=== PATIENT | female | born 1980 | race Caucasian/White ===

== ENCOUNTER 2019-06-04 08:01 | Emergency (ER) | payer SELFPAY ==
[~2019-06-04] VITALS: Ht 162.6 cm; Wt 79.2 kg
--- NOTE | 2019-06-04 08:30 | PHYS DOC ---
Past History Past Medical History: Asthma Past Surgical History: Cholecystectomy, Tubal ligation, Other Additional Past Surgical Histo: liver stent placed and removed; left eye Smoking: Cigarettes Alcohol Use: None Drug Use: None Adult General Chief Complaint Chief Complaint: NAUSEA/VOMITING/[facility] HPI Patient is a 38-year-old female presents with nausea, vomiting, and diarrhea for the past 2 days. She had a fever of 101 yesterday. Her daughter had similar symptoms last week. No blood in the stool or emesis. She reports being on her menses currently. No dysuria or hematuria otherwise. Some cramping upper abdominal pain. No significant relief with ibuprofen. Patient also notes that her asthma is flaring up. She has been using her inhaler more than usual. Mild cough that is nonproductive. She does get improvement with her inhaler.[] Review of Systems Review of Systems Constitutional: Denies fever or chills [] Eyes: Denies change in visual acuity, redness, or eye pain [] HENT: Denies nasal congestion or sore throat [] Respiratory: See history of present illness[] Cardiovascular: No additional information not addressed in HPI [] GI: See history of present illness[] : Denies dysuria or hematuria [] Musculoskeletal: Denies back pain or joint pain [] Integument: Denies rash or skin lesions [] Neurologic: Denies headache, focal weakness or sensory changes [] Endocrine: Denies polyuria or polydipsia [] All other systems were reviewed and found to be within normal limits, except as documented in this note. Allergies Allergies Allergies Uncoded Allergies Type Severity Reaction Last Updated Verified IV contrast dye Allergy Unknown 06/04/19 Physical Exam Physical Exam Constitutional: Well developed, well nourished, no acute distress, non-toxic appearance. [] HENT: Normocephalic, atraumatic, bilateral external ears normal, oropharynx moist, no oral exudates, nose normal. [] Eyes: PERRLA, EOMI, conjunctiva normal, no discharge. [] Neck: Normal range of motion, no tenderness, supple, no stridor. [] Cardiovascular:Heart rate regular rhythm, no murmur [] Lungs & Thorax: Bilateral breath sounds clear to auscultation [] Abdomen: Bowel sounds normal, soft, mild epigastric tenderness, no rebound, no guarding, no rigidity, she is able to sit up and lie back without any difficulty, no masses, no pulsatile masses. [] Skin: Warm, dry, no erythema, no rash. [] Back: No tenderness, no CVA tenderness. [] Extremities: No tenderness, no cyanosis, no clubbing, ROM intact, no edema. [] Neurologic: Alert and oriented X 3, normal motor function, normal sensory function, no focal deficits noted. [] Psychologic: Affect normal, judgement normal, mood normal. [] Current Patient Data Vital Signs Vital Signs Date Time Temp Pulse Resp B/P (MAP) Pulse Ox O2 Delivery O2 Flow Rate FiO2 06/04/19 08:13 98.1 79 18 95 Room Air EKG EKG [] Radiology/Procedures Radiology/Procedures [] Course & Med Decision Making Course & Med Decision Making Pertinent Labs and Imaging studies reviewed. (See chart for details) ED course: Patient arrived, was placed in bed, and tolerated exam well. Findings and plan were discussed with the patient. She was given antiemetics. She had no further episodes of nausea or vomiting while in the emergency department. She was discharged in improved condition with all questions answered. Medical decision making: There is no evidence of this being a flu syndrome. No evidence of pneumonia. Will put her on a short course of oral steroids to help with the wheezing. Believe this to be a viral syndrome triggering the nausea and vomiting along with her breathing issues. There is no evidence of hypoxia. No evidence of oral intake intolerance. No evidence of urinary tract infection or .[] Dragon Disclaimer Dragon Disclaimer This electronic medical record was generated, in whole or in part, using a voice recognition dictation system. Departure Departure: Impression: Primary Impression: Nausea, vomiting, and diarrhea Additional Impression: Asthma exacerbation Disposition: HOME, SELF-CARE Condition: IMPROVED Referrals: FRANCHESKA RAMOS (PCP) Follow-up in 2 days Patient Instructions: Asthma Attacks, Prevention, Asthma, Adult, Diet for Diarrhea, Adult, Nausea and Vomiting Additional Instructions: Stop smoking!Drink plenty of fluids, frequent small sips. No fatty foods, no milk, and no pepper for the next 48 hours. For the next 48 hours eat a diet rich in carbohydrates with foods such as bananas, rice, applesauce, and toast. Follow-up with your regular doctor in 2 days. Return to the ER if unable to tolerate liquids, worsening difficulty breathing, blood in the stool or emesis, or any other concerns. Scripts Metoclopramide Hcl (REGLAN) 10 Mg Tablet 10 MG PO QID for nausea and vomiting, #30 TAB Prov: JASBIR EUCEDA DO 06/04/19 Prednisone (PREDNISONE) 50 Mg Tablet 1 TAB PO DAILY for INFLAMMATION, #5 TAB Prov: JASBIR EUCEDA DO 06/04/19 Problem Qualifiers Additional Impression: Asthma exacerbation Asthma severity: mild Asthma persistence: intermittent Qualified Codes: J45.21 - Mild intermittent asthma with (acute) exacerbation JASBIR EUCEDA DO Jun 04, 2019 08:30
[2019-06-04] MEDS: HYOSCYAMINE 0.125 MG TAB.RAPDIS PO ONE (08:46)
[2019-06-04] MEDS: ONDANSETRON ODT 4 MG TAB.RAPDIS PO ONE (08:46)
[2019-06-04 08:53] LABS: BILIRUBIN,URINE NEG (NEG); CLARITY,URINE CLEAR; COLOR,URINE YELLOW; GLUCOSE,URINE NEG (NEG); NITRITE,URINE NEG (NEG); UROBILINOGEN,URINE 0.2 mg/dL (0.2 mg/dL)
[2019-06-04 09:16] LABS: INFLUENZA A PATIENT NEGATIVE (NEGATIVE); INFLUENZA B PATIENT NEGATIVE (NEGATIVE)
[2019-06-04] MEDS ORDERED: METO10TA81 PO (09:24)
[2019-06-04] MEDS ORDERED: PRED50TA PO (09:24)
[2019-06-04 09:41] VITALS: BP 131/81
== END 2019-06-04 09:42 | disposition home or self-care (01) ==
LOC: ER 08:01
DX: R11.2 Nausea with vomiting, unspecified (principal); R19.7 Diarrhea, unspecified; J45.21 Mild intermittent asthma with (acute) exacerbation; F17.210 Nicotine dependence, cigarettes, uncomplicated; Z90.49 Acquired absence of other specified parts of digestive tract; Z98.51 Tubal ligation status; Z91.041 Radiographic dye allergy status
CPT/HCPCS: 81003; 81025; 87804; 99284; Q0162

== ENCOUNTER 2020-03-21 09:36 | Emergency (ER) | payer BC ==
[~2020-03-21] VITALS: Ht 162.6 cm; Wt 84.0 kg
[~2020-03-21 09:36] MED LIST: METO10TA81 PO; PRED50TA PO
--- NOTE | 2020-03-21 09:53 | PHYS DOC ---
Past History Past Medical History: Asthma Past Surgical History: Cholecystectomy, Tubal ligation, Other Additional Past Surgical Histo: liver stent placed and removed; left eye Smoking: Cigarettes Alcohol Use: None Drug Use: None General Adult HPI: HPI: 29-year-old female past medical history significant for asthma, presents to the ED with c/o ruq alexander, nonradiating abdominal pain with 1 episode of nbnb vomiting this am, stating "I've had this pain for 9 years but it never usually lasts this long." Reports pain has been constant for 45 minutes and is requesting pain medication. 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 Reports recent upper endoscopy on March 04 at [facility] with Dr. Lay. Past surgical history with cholecystectomy and tubal ligation with a liver stent placed (because of retained gall stone). Pt reports she never drinks alcohol, has no known hyperlipidemia. PCP-Dr. Blevins. States she's not on chronic pain medications-last time she was was when she had a retained gall stone. Has not eaten anything today.Patient's endoscopy report showed normal common bile duct, no stones or filling defects within the bile duct with no dilatation, normal visualized portions of the liver with no lymphadenopathy, pancreatic ductal anatomy was consistent with pancreas division with no calcifications seen throughout the pancreas, no evidence of chronic pancreatitis, pancreatic duct was normal in caliber throughout pancreas. Report was recommending an MRI MRCP with secretin to evaluate pancreatic ductal anatomy-this was to be performed yesterday at [facility] but pt missed it because she was "working a double." Patient has follow-up with Dr. Lay on April 18. Review of Systems: Review of Systems: Constitutional: Denies fever or chills Eyes: Denies change in visual acuity HENT: Denies nasal congestion or sore throat Respiratory: Denies cough or shortness of breath or hemoptysis Cardiovascular: Denies chest pain or edema GI: Denies hematochezia, hematemesis, melena or diarrhea : Denies dysuria or hematuria Musculoskeletal: Denies back pain or joint pain Integument: Denies rash Neurologic: Denies headache, focal weakness or sensory changes Endocrine: Denies polyuria or polydipsia Lymphatic: Denies swollen glands Psychiatric: Denies depression or anxiety Heart Score: Risk Factors: Risk Factors: DM, Current or recent (<one month) smoker, HTN, HLP, family history of CAD, obesity. Risk Scores: Score 0 - 3: 2.5% MACE over next 6 weeks - Discharge Home Score 4 - 6: 20.3% MACE over next 6 weeks - Admit for Clinical Observation Score 7 - 10: 72.7% MACE over next 6 weeks - Early Invasive Strategies Allergies: Allergies: Allergies Uncoded Allergies Type Severity Reaction Last Updated Verified IV contrast dye Allergy Unknown 06/04/19 Physical Exam: PE: Constitutional: Well developed, well nourished, no acute distress-calm/resting, non-toxic appearance. [] HENT: Normocephalic, atraumatic, bilateral external ears normal, Eyes: EOMI, conjunctiva normal, no discharge. [] Neck: Normal range of motion, no tenderness, supple, no stridor. [] Cardiovascular:Heart rate regular rhythm, no murmur [] Lungs & Thorax: Bilateral breath sounds clear to auscultation [] Abdomen: Bowel sounds normal, soft, no reproducible ruq tenderness, no masses, no pulsatile masses. [] Skin: Warm, dry, no erythema, no rash. [] Back: No tenderness, Extremities: No tenderness, no cyanosis, no clubbing, ROM intact, no edema. [] Neurologic: Alert and oriented X 3, normal motor function, normal sensory function, no focal deficits noted. [] Psychologic: Affect normal, judgement normal, mood normal. [] EKG: EKG: [] Radiology/Procedures: Radiology/Procedures: IMAGING REPORT Signed PATIENT: PRIYA DAVENPORT ACCOUNT: [id number] : 11/16/1990 LOCATION: ER AGE: 29 SEX: F EXAM STATUS: REG ER ORD. PHYSICIAN: BEN TEE DO REASON: ruq pain PROCEDURE: ACUTE ABDOMEN SERIES ACUTE ABDOMEN SERIES History: Reason: ruq pain / Spl. Instructions: / History: Technique: Upright and supine views of the abdomen. Comparison: None. Findings: No consult DISH or pleural effusion. No pneumothorax. Normal heart size. No pneumoperitoneum. Nondilated air-filled small bowel within the left mid abdomen. Air and stool scattered throughout the imaged colon. No air-fluid level. Surgical clips right upper quadrant. Impression: 1. Nonobstructed bowel gas pattern. Electronically signed by: Jesus Britton DO (03/21/2020 10:49 AM) [id number] DICTATED AND SIGNED BY: JESUS BRITTON DO DATE: 03/21/20 1049 CC: [facility]LEVINS; [facility] ~ Course & Med Decision Making: Course & Med Decision Making Pertinent Labs and Imaging studies reviewed. (See chart for details) Concern for chronic RUQ abdominal pain (x9 years), likely secondary to pancreatic divisum. Pt will need to reschedule her MRI MRCP. U/a with yeast - will prescribe diflucan. Also prescribe Zofran ODT and Motrin as needed for pain. Will refer to GI for further work-up and evaluation. We will also refer back to her primary care physician for pain management along with pain management referral. Strict ED return precautions were given for severe abdominal pain, fever or dehydration. Life-threatening processes were considered but are low suspicion at this time, given history and physical exam. Pt was educated on all prescription medications and adverse effects. All patient's questions were answered and pt was stable at time of discharge. Life/limb-threatening differential includes but is not limited to, aortic dissection, aortic aneurysm, acute coronary syndrome, surgical abdomen (appendicitis, cholecystitis, ischemic bowel, strangulated hernia, etc), bowel obstruction or volvulus, bladder outlet obstruction, gastrointestinal bleeding, inflammatory bowel disease, peptic ulcer disease, sepsis, diverticular disease, ureterolithiasis, nephrolithiasis, ovarian or testicular torsion, ectopic , vaginal hemorrhage, or genitourinary infection. I spoken with the patient and her caregivers. I explained the patient's condition, diagnoses and treatment plan based on the information available to me at this time. I have answered the patient and her caregiver's questions and addressed any concerns. The patient and her caregivers have a good understanding of patient's diagnosis, condition and treatment plan as can be expected at this point. Vital signs have been stable. Patient's condition is stable and appropriate for discharge from the emergency department. Patient will pursue further outpatient evaluation with primary care physician or other designated or consulting physician as outlined in the discharge instr uctions. The patient and/or caregivers are agreeable to this plan of care and follow-up instructions have been explained in detail. The patient and/or caregivers have received these instructions in written form and have expressed an understanding of the discharge instructions. The patient and/or caregivers are aware that any significant change of condition or worsening of symptoms should prompt immediate return to this or the closest emergency department or call to 911. Connor Disclaimer: Connor Disclaimer: This electronic medical record was generated, in whole or in part, using a voice recognition dictation system. Departure Departure: Impression: Primary Impression: Abdominal pain Additional Impressions: Pancreas divisum Nausea Yeast detected Disposition: HOME/RESIDENCE PRIOR TO ADM Condition: STABLE Referrals: DC BLEVINS (PCP) Patient Instructions: Abdominal Pain, Nausea, Adult Additional Instructions: FOLLOW UP WITH GASTROENTEROLOGY: [facility] [address], [address], [place] [address] FOLLOW UP WITH PAIN MANAGEMENT: [facility] Address: [address] [place] [id number] EMERGENCY DEPARTMENT GENERAL DISCHARGE INSTRUCTIONS Thank you for coming to [facility] (ED) today and trusting us with you care. We trust that you had a positivie experience in our Emergency Department. If you wish to speak to the department management, you may call the director at . YOUR FOLLOW UP INSTRUCTIONS ARE FOLLOWS: 1. Do you have a private Doctor? If you do not have a private doctor, please ask for a resource list of physicians or clinics that may be able to assist you with follow up care. 2. The Emergency Physician has interpreted your x-rays. The X-Ray specialist will also review them. If there is a change in the findings, you will be notified in 48 hours when at all possible. 3. A lab test or culture has been done, your results will be reviewed and you will be notified if you need a change in treatment. ADDITIONAL INSTRUCTIONS AND INFORMATION: 1. Your care today has been supervised by a physician who is specially trained in emergency care. Many problems require more than one evaluation for a complete diagnosis and treatment. We recommend that you schedule your follow up appointment as recommended to ensure complete treatment of you illness or injury. If you are unable to obtain follow up care and continue to have a problem, or if your condition worsens, we recommend that you return to the ED. 2. We are not able to safely determine your condition over the phone nor are we able to give sound medical advice over the phone. For these safety reasons, if you call for medical advice we will ask you to come to the ED for further evaluation. 3. If you have any questions regarding these discharge instructions please call the ED at [phone]. SAFETY INFORMATION: In the interest of safety, wellness, and injury prevention; we encourage you to wear your sealbelt, if you smoke; quite smoking, and we encourage family to use a protective helmet for bicycling and other sporting events that present an increased risk for head injury. IF YOUR SYMPTOMS WORSEN OR NEW SYMPTOMS DEVELOP, OR YOU HAVE CONCERNS ABOUT YOUR CONDITION; OR IF YOUR CONDITION WORSENS WHILE YOU ARE WAITING FOR YOUR FOLLOW UP APPOINTMENT; EITHER CONTACT YOUR PRIMARY CARE DOCTOR, THE PHYSICIAN WHOSE NAME AND NUMBER YOU WERE GIVEN, OR RETURN TO THE ED IMMEDIATELY. Scripts Fluconazole (DIFLUCAN) 150 Mg Tablet 1 TAB PO ONCE for infection, #1 TAB 1 Refill Prov: BEN TEE DO 03/21/20 Ondansetron (ONDANSETRON ODT) 4 Mg Tab.rapdis 4 MG PO Q6HRS for Nausea/Vomiting, #15 TAB Prov: BEN TEE DO 03/21/20 Ibuprofen (IBUPROFEN) 600 Mg Tablet 600 MG PO Q6HRS for headache, #20 TAB Prov: BEN TEE DO 03/21/20 BEN TEE DO Mar 21, 2020 09:53
[2020-03-21] MEDS ORDERED: ONDANSETRON PF 4 MG/2 ML VIAL. IVP ONE (10:00)
[2020-03-21] MEDS ORDERED: MORPHINE SULFATE 4 MG/ML DISP.SYRIN. IV ONE ×2 (10:00→11:15)
[2020-03-21] MEDS ORDERED: IV NORMAL SALINE 1,000ML 1,000 ML IV SCH (10:00)
[2020-03-21 10:31] LABS: BASO # 0.1 x10^3/uL (0.0-0.2); BASO % 1 % (0-3); EOS # 0.1 x10^3/uL (0.0-0.7); EOS % 2 % (0-3); HEMATOCRIT 46.3 % (36.0-47.0); HEMOGLOBIN 15.7 g/dL (12.0-15.5); LYMPH # 2.1 x10^3/uL (1.0-4.8); LYMPH % 24 % (24-48); MEAN CORPUSCULAR HEMOGLOBIN 30 pg (25-35); MEAN CORPUSCULAR HGB CONC 34 g/dL (31-37); MEAN CORPUSCULAR VOLUME 90 fL (79-100); MONO # 0.6 x10^3/uL (0.0-1.1); MONO % 8 % (0-9); NEUT # 5.6 x10^3uL (1.8-7.7); NEUT % 66 % (31-73); PLATELET COUNT 269 x10^3/uL (140-400); RED BLOOD COUNT 5.17 x10^6/uL (3.50-5.40); RED CELL DISTRIBUTION WIDTH 13.1 % (11.5-14.5); WHITE BLOOD COUNT 8.5 x10^3/uL (4.0-11.0)
[2020-03-21 10:41] LABS: CALCIUM 8.8 mg/dL (8.5-10.1); GFR 65.1; POTASSIUM 3.7 mmol/L (3.5-5.1)
[2020-03-21 10:47] LABS: ALBUMIN 3.5 g/dL (3.4-5.0); DIRECT BILIRUBIN 0.1 mg/dL (0.0-0.2); TOTAL BILIRUBIN 0.3 mg/dL (0.2-1.0); TOTAL PROTEIN 7.3 g/dL (6.4-8.2)
--- NOTE | 2020-03-21 10:53 | RAD ---
ACUTE ABDOMEN SERIES History: Reason: ruq pain / Spl. Instructions: / History: Technique: Upright and supine views of the abdomen. Comparison: None. Findings: No consult DISH or pleural effusion. No pneumothorax. Normal heart size. No pneumoperitoneum. Nondilated air-filled small bowel within the left mid abdomen. Air and stool scattered throughout the imaged colon. No air-fluid level. Surgical clips right upper quadrant. Impression: 1. Nonobstructed bowel gas pattern. Electronically signed by: Jesus Britton DO (03/21/2020 10:49 AM) [id number]
[2020-03-21 11:12] LABS: BARBITURATES NEG (NEG); BENZODIAZEPINES NEG (NEG); CANNABINOIDS NEG (NEG); COCAINE NEG (NEG); METHADONE NEG (NEG); OPIATES NEG (NEG); PHENCYCLIDINE NEG (NEG)
[2020-03-21 11:14] LABS: AMPHETAMINE/METHAMPHETAMINE NEG (NEG)
[2020-03-21] MEDS ORDERED: ACETAMINOPHEN 500 MG TABLET PO ONE (11:15)
[2020-03-21 11:33] LABS: BACTERIA,URINE 0 /HPF (0-FEW); BILIRUBIN,URINE NEG (NEG); CLARITY,URINE HAZY; COLOR,URINE STRAW; GLUCOSE,URINE NEG (NEG); NITRITE,URINE NEG (NEG); RBC,URINE OCC /HPF (0-2); SQUAMOUS EPITHELIAL CELL,UR MANY /LPF; UROBILINOGEN,URINE 0.2 mg/dL (0.2 mg/dL)
[2020-03-21 11:34] LABS: YEAST,URINE PRESENT /HPF
[2020-03-21 11:39] LABS: U PREG PATIENT NEGATIVE (NEG)
[2020-03-21] MEDS ORDERED: ONDA4TAB12 PO (11:45)
[2020-03-21] MEDS ORDERED: IBUP600T16 PO (11:45)
[2020-03-21] MEDS ORDERED: FLUC150T PO (11:47)
[2020-03-21 11:52] VITALS: BP 137/50
== END 2020-03-21 11:53 | disposition home or self-care (01) ==
LOC: ER 09:36
DX: Q45.3 Other congenital malformations of pancreas and pancreatic duct (principal); B37.9 Candidiasis, unspecified; R10.11 Right upper quadrant pain; R11.2 Nausea with vomiting, unspecified; J45.909 Unspecified asthma, uncomplicated; F17.210 Nicotine dependence, cigarettes, uncomplicated; Z90.49 Acquired absence of other specified parts of digestive tract; Z98.51 Tubal ligation status; Z88.8 Allergy status to other drugs, medicaments and biological substances
CPT/HCPCS: 36415; 74022; 80048; 80076; 80307; 81001; 81025; 83690; 85025; 87086; 96361; 96374; 96375; 96376; 99284; J2270; J2405; J7030

== ENCOUNTER 2020-04-14 18:23 | Emergency (ER) | payer BC ==
[~2020-04-14] VITALS: Ht 162.6 cm; Wt 82.0 kg
[~2020-04-14 18:23] MED LIST changes: +FLUC150T PO; +IBUP600T16 PO; +ONDA4TAB12 PO
--- NOTE | 2020-04-14 18:50 | PHYS DOC ---
Past History Past Medical History: Asthma, Pancreatitis Past Surgical History: Cholecystectomy Additional Past Surgical Histo: liver stent placed and removed; left eye Smoking: Cigarettes Alcohol Use: None Drug Use: None General Adult EDM: Chief Complaint: SORE THROAT HPI: HPI: History taken from patient. Patient is a 29-year-old female with a history of cholecystectomy, asthma who presents with chief complaint of sore throat. States he is at [facility] service over the past 2 days. Notes it is painful to swallow. Denies any changes to her voice. Does note some right anterior neck discomfort. Also noting some slight neck stiffness. Denies vomiting. Denies any dental issues. Denies difficulty breathing. Denies difficulty swallowing. Has been able to eat and drink. Denies fevers. Denies vomiting. Nuys chest pain or shortness of breath. Denies IV drug use. Denies any recent dental procedures. States the pain is aching in nature. 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 Denies any cough. No other compla ints. Review of Systems: Review of Systems: Constitutional: Denies fever or chills Eyes: Denies change in visual acuity HENT: Positive for sore throat Respiratory: Denies cough or shortness of breath Cardiovascular: Denies chest pain or edema GI: Denies abdominal pain, nausea, vomiting, bloody stools or diarrhea : Denies dysuria Musculoskeletal: Denies back pain or joint pain Integument: Denies rash Neurologic: Denies headache, focal weakness or sensory changes Endocrine: Denies polyuria or polydipsia Lymphatic: Denies swollen glands Psychiatric: Denies depression or anxiety Allergies: Allergies: Allergies Coded Allergies Type Severity Reaction Last Updated Verified Iodinated Contrast Media Allergy Unknown 03/21/20 Yes Physical Exam: PE: Constitutional: Well developed, well nourished, no acute distress, non-toxic appearance. [] ENT: Tolerates saliva. No trismus. Mild erythema of the oropharynx without exudate. No airway obstruction. Normal phonation. Uvula midline. NECK: No midline cervical tenderness. Anterior cervical adenopathy is present. No tenderness of carotid sheath bilaterally. Neck supple with full ROM and without signs of meningismus. Eyes: PERRLA, EOMI, conjunctiva normal, no discharge. [] Neck: Normal range of motion, no tenderness, supple, no stridor. [] Cardiovascular:Heart rate regular rhythm, no murmur [] Lungs & Thorax: Bilateral breath sounds clear to auscultation [] Abdomen: Bowel sounds normal, soft, no tenderness, no masses, no pulsatile masses. [] Skin: Warm, dry, no erythema, no rash. [] Back: No tenderness, no CVA tenderness. [] Extremities: No tenderness, no cyanosis, no clubbing, ROM intact, no edema. [] Neurologic: Alert and oriented X 3, normal motor function, normal sensory function, no focal deficits noted. [] Psychologic: Affect normal, judgement normal, mood normal. [] Current Patient Data: Labs: Laboratory Tests Test 04/14/20 19:02 White Blood Count 13.5 x10^3/uL Red Blood Count 5.13 x10^6/uL Hemoglobin 15.5 g/dL Hematocrit 46.2 % Mean Corpuscular Volume 90 fL Mean Corpuscular Hemoglobin 30 pg Mean Corpuscular Hemoglobin Concent 34 g/dL Red Cell Distribution Width 13.1 % Platelet Count 276 x10^3/uL Neutrophils (%) (Auto) 71 % Lymphocytes (%) (Auto) 20 % Monocytes (%) (Auto) 6 % Eosinophils (%) (Auto) 2 % Basophils (%) (Auto) 1 % Neutrophils # (Auto) 9.6 x10^3uL Lymphocytes # (Auto) 2.7 x10^3/uL Monocytes # (Auto) 0.9 x10^3/uL Eosinophils # (Auto) 0.2 x10^3/uL Basophils # (Auto) 0.1 x10^3/uL Sodium Level 138 mmol/L Potassium Level 3.6 mmol/L Chloride Level 104 mmol/L Carbon Dioxide Level 22 mmol/L Anion Gap 12 Blood Urea Nitrogen 13 mg/dL Creatinine 0.9 mg/dL Estimated GFR (Cockcroft-Gault) 73.5 Glucose Level 83 mg/dL Calcium Level 8.6 mg/dL Current Medications Medications (Trade) Dose Ordered Sig/Cortes Route PRN Reason Start Time Stop Time Status Last Admin Dose Admin Methylprednisolone Sodium Succinate (SOLU-Medrol 125MG VIAL) 125 mg 1X ONCE IV 04/14/20 19:00 04/14/20 19:01 DC 04/14/20 19:29 Diphenhydramine HCl (Benadryl) 50 mg 1X ONCE IVP 04/14/20 19:00 04/14/20 19:01 DC 04/14/20 19:29 Iohexol (Omnipaque 300 Mg/ml) 75 ml 1X ONCE IV 04/14/20 19:15 04/14/20 19:19 DC 04/14/20 20:12 Info (Do NOT chart on this entry -- for MONITORING) 1 each PRN DAILY PRN MC SEE COMMENTS 04/14/20 19:15 04/16/20 19:14 Vital Signs: Vital Signs Date Time Temp Pulse Resp B/P (MAP) Pulse Ox O2 Delivery O2 Flow Rate FiO2 04/14/20 18:34 98.0 96 16 151/56 (87) 98 Room Air EKG: EKG: [] Radiology/Procedures: Radiology/Procedures: [][address] [address] IMAGING REPORT Signed PATIENT: PRIYA DAVENPORT ACCOUNT: [id number] : 11/16/1990 LOCATION: ER AGE: 29 SEX: F EXAM STATUS: REG ER ORD. PHYSICIAN: MORGAN TOMLINSON DO REASON: OMNI 300,75ML IV.Sore throat, neck pain - pt being premedicated PROCEDURE: CT SOFT TISSUE NECK W/CONTRAST Study: CT neck with contrast INDICATION: Sore throat. Neck pain. COMPARISON: None. TECHNIQUE: Axial CT imaging of the neck performed after the intravenous administration of 75 cc Omnipaque 300 contrast. Coronal and sagittal reformats were obtained. One or more of the following individualized dose reduction techniques were utilized for this examination: 1. Automated exposure control 2. Adjustment of the mA and/or kV according to patient size 3. Use of iterative reconstruction technique. FINDINGS: Unremarkable adenoids, palatine tonsils and lingual tonsils. Normal epiglottis. No parapharyngeal inflammation or prevertebral fluid collection. Unremarkable submandibular glands, parotid glands and thyroid. No mucosal mass is seen. No cervical chain adenopathy. Patent major vasculature. Widely patent airway. Unremarkable lung apices and visualized intracranial contents. No significant odontogenic disease. Unremarkable cervical spine. IMPRESSION: Unremarkable CT of the neck. No abnormality involving the mucosal surfaces, epiglottis or tonsils to account for the patient's symptoms. Electronically signed by: CARLOS DUBOIS MD (04/14/2020 8:26 PM) [id number] DICTATED AND SIGNED BY: CARLOS DUBOIS MD DATE: 04/14/202025 CC: DC ZURITA; MORGAN TOMLINSON DO ~ Heart Score: Risk Factors: Risk Factors: DM, Current or recent (<one month) smoker, HTN, HLP, family history of CAD, obesity. Risk Scores: Score 0 - 3: 2.5% MACE over next 6 weeks - Discharge Home Score 4 - 6: 20.3% MACE over next 6 weeks - Admit for Clinical Observation Score 7 - 10: 72.7% MACE over next 6 weeks - Early Invasive Strategies Course & Med Decision Making: Course & Med Decision Making Pertinent Labs and Imaging studies reviewed. (See chart for details) [] Patient is an overall well-appearing 29-year-old female presents with chief complaint of sore throat and some right anterior neck fullness. Vital signs unremarkable. Patient nontoxic-appearing. Rapid strep is negative. CT imaging was obtained to evaluate for deep space infection. This was unremarkable. Labs overall unremarkable. Repeat examination she shows no signs of toxicity. She has tolerated p.o. without difficulty. Normal phonation. Overall I do feel it is appropriate for discharge home with close follow-up. Antibiotics to be deferred at this time. She was encouraged on [id number] measures for symptom control. Return precautions discussed and understood. Stable for discharge home. At this point I estimate that patient is low risk for an emergent etiology such as; bacterial meningitis, sepsis, airway compromising infection (e.g. RPA or [employer] AND SERVICE [employer]), septic thrombophlebitis, carotid dissection, epidural abscess, or discitis. There is a very small possibility that any of these conditions (or others) could potentialy be in the very early stages and/or could develop in th near future, but at this point, I consider discharge a reasonable course of action. Dragon Disclaimer: Dragrambo Disclaimer: This electronic medical record was generated, in whole or in part, using a voice recognition dictation system. Departure Departure: Impression: Primary Impression: Sore throat Disposition: 01 DC HOME SELF CARE/HOMELESS Condition: STABLE Referrals: CD ZURITA (PCP) Patient Instructions: Sore Throat MORGAN TOMLINSON DO Apr 14, 2020 18:50
[2020-04-14] MEDS ORDERED: methylPREDNISolone SOD SUCC PF 125 MG/2 ML VIAL. IV ONE (19:00)
[2020-04-14] MEDS ORDERED: diphenhydrAMINE 50 MG/ML VIAL IVP ONE (19:00)
[2020-04-14] MEDS ORDERED: IOHEXOL 300 MG/ML 75 ML VIAL. IV ONE (19:15)
[2020-04-14] MEDS ORDERED: CONTRAST GIVEN. MC PRN (19:15)
[2020-04-14 19:22] LABS: BASO # 0.1 x10^3/uL (0.0-0.2); BASO % 1 % (0-3); EOS # 0.2 x10^3/uL (0.0-0.7); EOS % 2 % (0-3); HEMATOCRIT 46.2 % (36.0-47.0); HEMOGLOBIN 15.5 g/dL (12.0-15.5); LYMPH # 2.7 x10^3/uL (1.0-4.8); LYMPH % 20 % (24-48); MEAN CORPUSCULAR HEMOGLOBIN 30 pg (25-35); MEAN CORPUSCULAR HGB CONC 34 g/dL (31-37); MEAN CORPUSCULAR VOLUME 90 fL (79-100); MONO # 0.9 x10^3/uL (0.0-1.1); MONO % 6 % (0-9); NEUT # 9.6 x10^3uL (1.8-7.7); NEUT % 71 % (31-73); PLATELET COUNT 276 x10^3/uL (140-400); RED BLOOD COUNT 5.13 x10^6/uL (3.50-5.40); RED CELL DISTRIBUTION WIDTH 13.1 % (11.5-14.5); WHITE BLOOD COUNT 13.5 x10^3/uL (4.0-11.0)
[2020-04-14 19:27] LABS: CALCIUM 8.6 mg/dL (8.5-10.1); CREATININE 0.9 mg/dL (0.6-1.0); GFR 73.5; POTASSIUM 3.6 mmol/L (3.5-5.1)
--- NOTE | 2020-04-14 20:29 | RAD ---
Study: CT neck with contrast INDICATION: Sore throat. Neck pain. COMPARISON: None. TECHNIQUE: Axial CT imaging of the neck performed after the intravenous administration of 75 cc Omnipaque 300 contrast. Coronal and sagittal reformats were obtained. One or more of the following individualized dose reduction techniques were utilized for this examination: 1. Automated exposure control 2. Adjustment of the mA and/or kV according to patient size 3. Use of iterative reconstruction technique. FINDINGS: Unremarkable adenoids, palatine tonsils and lingual tonsils. Normal epiglottis. No parapharyngeal inflammation or prevertebral fluid collection. Unremarkable submandibular glands, parotid glands and thyroid. No mucosal mass is seen. No cervical chain adenopathy. Patent major vasculature. Widely patent airway. Unremarkable lung apices and visualized intracranial contents. No significant odontogenic disease. Unremarkable cervical spine. IMPRESSION: Unremarkable CT of the neck. No abnormality involving the mucosal surfaces, epiglottis or tonsils to account for the patient's symptoms. Electronically signed by: CARLOS DUBOIS MD (04/14/2020 8:26 PM) [id number]
[2020-04-14 21:01] VITALS: BP 143/52
== END 2020-04-14 21:00 | disposition home or self-care (01) ==
LOC: ER 18:23
DX: J02.9 Acute pharyngitis, unspecified (principal); M43.6 Torticollis; R59.0 Localized enlarged lymph nodes; J45.909 Unspecified asthma, uncomplicated; F17.210 Nicotine dependence, cigarettes, uncomplicated; Z91.041 Radiographic dye allergy status
CPT/HCPCS: 36415; 70491; 80048; 85025; 87070; 87880; 96374; 96375; 99285; J1200; J2930; Q9967

== ENCOUNTER 2021-01-01 21:47 | Emergency (ER) | payer OTHER ==
[~2021-01-01] VITALS: Ht 167.6 cm; Wt 83.5 kg
[2021-01-01 22:27] VITALS: BP 142/89
--- NOTE | 2021-01-01 23:00 | PHYS DOC ---
Past History Past Medical History: Asthma, Pancreatitis Additional Past Medical Histor: abnormal pancrease Past Surgical History: Cholecystectomy, Other Additional Past Surgical Histo: liver stent placed and removed; left eye Smoking: Cigarettes Alcohol Use: None Drug Use: None Adult General Chief Complaint Chief Complaint: VAGINAL BLEEDING HPI HPI Patient is a 30-year-old female who presents to the emergency department after an episode of vaginal bleeding. States she was due to start her menstrual cycle in 2 days but started a new control method a couple of days before that that she is never used before. States that she had some cramping in her lower abdomen that felt like she was going to have her menstrual cycle and then had one episode of vaginal bleeding with a small amount of clot, that has now resolved. States she is no longer having the cramping either. States she just want to make sure she was not and taking the control at the same time. Denies any recent traumas, travels, illnesses, fevers, chest pain, shortness of breath, other abdominal pain, nausea, vomiting, diarrhea. Review of Systems Review of Systems Review of systems otherwise unremarkable except noted in HPI Allergies Allergies Allergies Coded Allergies Type Severity Reaction Last Updated Verified Iodinated Contrast Media Allergy Severe 01/01/21 Yes Physical Exam Physical Exam Constitutional: Well developed, well nourished, no acute distress, non-toxic appearance. [] HENT: Normocephalic, atraumatic, Eyes: conjunctiva normal, no discharge. [] Cardiovascular:Heart rate regular rhythm, no murmur [] Lungs & Thorax: Bilateral breath sounds clear to auscultation [] Abdomen: soft, no tenderness, no masses, no pulsatile masses. [] Skin: Warm, dry, no erythema, no rash. [] Back: no CVA tenderness. [] Extremities: No tenderness, ROM intact, no edema. [] Neurologic: Alert and oriented X 3, no focal deficits noted. [] Psychologic: Affect normal, judgement normal, mood normal. [] Current Patient Data Vital Signs Vital Signs Date Time Temp Pulse Resp B/P (MAP) Pulse Ox O2 Delivery O2 Flow Rate FiO2 01/01/21 22:27 98.6 77 18 142/89 95 Room Air EKG EKG [] Radiology/Procedures Radiology/Procedures [] Heart Score C/O Chest Pain: No Risk Factors: Risk Factors: DM, Current or recent (<one month) smoker, HTN, HLP, family history of CAD, obesity. Risk Scores: Risk Factors: DM, Current or recent (<one month) smoker, HTN, HLP, family history of CAD, obesity. Course & Med Decision Making Course & Med Decision Making Patient is a 30-year-old female who came into the emergency department requesti ng test and with an episode of vaginal bleeding after starting a new control method Vital signs not concerning. Physical exam noted above. Urine negative. States that bleeding has resolved and that the cramping has discontinued and feels safe to discharge home since she is not . Discussed all findings with patient. Advised to follow-up with her primary care physician/[facility] SECRETARY whoever prescribes her the new control method to discuss her ED visit and symptoms. Gave strict return precautions to the ED. Patient grateful, verbalized understanding and agreed with plan of discharge. [] Dragon Disclaimer Dragon Disclaimer This electronic medical record was generated, in whole or in part, using a voice recognition dictation system. Departure Departure: Impression: Primary Impression: Vaginal bleeding Disposition: HOME / SELF CARE / HOMELESS Condition: GOOD Referrals: ELAN TEIXEIRA (PCP) Additional Instructions: Thank you for coming into the emergency department tonight and allowing us to take care of you. Your test was negative. As we discussed it would be a good idea for you to contact your primary care physician/[facility] SECRETARY who prescribed you to the new control methods to discuss your ED visit and set up a follow-up as soon as you can. Please come back to the emergency department immediately with new or concerning symptoms as discussed. ANANT DUMONT MD Jan 01, 2021 23:00
[2021-01-01 23:24] LABS: CLARITY,URINE CLOUDY; COLOR,URINE RED
[2021-01-01 23:25] LABS: BACTERIA,URINE FEW /HPF (0-FEW); RBC,URINE TNTC /HPF (0-2); SQUAMOUS EPITHELIAL CELL,UR FEW /LPF
[2021-01-01 23:59] LABS: U PREG PATIENT NEGATIVE (NEG)
== END 2021-01-02 00:54 | disposition home or self-care (01) ==
LOC: ER 21:47
DX: N93.8 Other specified abnormal uterine and vaginal bleeding (principal); R10.30 Lower abdominal pain, unspecified; J45.909 Unspecified asthma, uncomplicated; F17.210 Nicotine dependence, cigarettes, uncomplicated; Z90.49 Acquired absence of other specified parts of digestive tract; Z91.041 Radiographic dye allergy status
CPT/HCPCS: 81001; 81025; 87086; 99283